=== PATIENT | male | born 1985 | race Caucasian/White ===

== ENCOUNTER 2020-11-20 13:05 | Emergency (ER) | payer OTHER ==
[~2020-11-20] VITALS: Ht 185.4 cm; Wt 122.5 kg
--- NOTE | 2020-11-20 13:24 | NUR ---
The patient is bibself got c/o cough x 10 days, 99% on room air,recently tested negative for covid. The patient is alert and oriented x4. Denies pain. Patient in room air. Patient seen by Dr Bartlett. Patient provided with warm blanket for comfort. Will continue to monitor.
[2020-11-20 13:54] LABS: BASOPHILS # (AUTO) 0.1 /CMM (0.0-0.2); BASOPHILS % (AUTO) 0.7 % (0.0-2.0); EOSINOPHILS % (AUTO) 1.7 % (0.0-6.0); HEMATOCRIT 45 % (39-51); HEMOGLOBIN 15.3 g/dL (13.5-17.5); LYMPHOCYTES % (AUTO) 30.4 % (20.0-44.0); MEAN CORPUSCULAR HGB CONC 34 g/dl (31.0-36.0); MEAN CORPUSCULAR VOLUME 89 fL (80-96); MONOCYTES # (AUTO) 0.8 /CMM (0.1-1.30); MONOCYTES % (AUTO) 7.7 % (2.0-12.0); NEUTROPHILS # (AUTO) 5.9 /CMM (1.8-8.9); NEUTROPHILS % (AUTO) 59.5 % (43.0-81.0); PLATELET COUNT (AUTO) 176 /CMM (150-450); RED BLOOD CELL COUNT(AUTO) 5.01 MIL/uL (4.5-6.0)
[2020-11-20 14:01] LABS: CALCIUM, SERUM 8.8 mg/dL (8.5-10.1); CREATININE 1.1 mg/dL (0.6-1.3); POTASSIUM 4.1 mmol/L (3.5-5.1)
--- NOTE | 2020-11-20 14:01 | NUR ---
c[place] swab done and took it to the lab
--- NOTE | 2020-11-20 14:30 | NUR ---
the patient alert and oreinted x4. Denies pain/SOB. Respiration regular and unlabored. Patient discharged to home in stable condition. Written and verbal after care instructions given. Patient verbalizes understanding of instruction. Patient left ER in stable condition.
[2020-11-20 14:31] VITALS: BP 131/78
== END 2020-11-20 14:31 | disposition home or self-care (01) ==
LOC: ER 13:09
DX: R09.82 Postnasal drip (principal); R05 Cough; Z20.822 Contact with and (suspected) exposure to COVID-19
CPT/HCPCS: 36415; 71045; 80048; 85025; 99284; C9803; U0003

== ENCOUNTER 2022-07-01 11:31 | Emergency (ER) | payer MEDICAID, OTHER ==
[~2022-07-01] VITALS: Ht 185.4 cm; Wt 95.3 kg
--- NOTE | 2022-07-01 11:43 | NUR ---
AT BEDSIDE FOR EVAL
[2022-07-01] MEDS ORDERED: FAMOTIDINE/PF INJ 20 MG/2 ML VIAL IV ONE ×2 (11:50→12:00)
--- NOTE | 2022-07-01 11:50 | NUR ---
IV line established 20g RAC , blood drawn sent to lab
[2022-07-01] MEDS ORDERED: IV NS 0.9% 500 ML BAG IV ONE (12:00)
[2022-07-01 12:37] LABS: BASOPHILS % (AUTO) 0.2 % (0.0-2.0); EOSINOPHILS % (AUTO) 0.5 % (0.0-6.0); HEMATOCRIT 46 % (39-51); HEMOGLOBIN 15.8 g/dL (13.5-17.5); LYMPHOCYTES # (AUTO) 3.7 K/uL (0.8-4.8); LYMPHOCYTES % (AUTO) 26.8 % (20.0-44.0); MEAN CORPUSCULAR HGB CONC 34 g/dl (31.0-36.0); MEAN CORPUSCULAR VOLUME 87 fL (80-96); MONOCYTES # (AUTO) 1.1 K/uL (0.1-1.30); MONOCYTES % (AUTO) 8.3 % (2.0-12.0); NEUTROPHILS # (AUTO) 8.7 K/uL (1.8-8.9); NEUTROPHILS % (AUTO) 64.2 % (43.0-81.0); PLATELET COUNT (AUTO) 208 K/uL (150-450); RED BLOOD CELL COUNT(AUTO) 5.33 MIL/uL (4.5-6.0); WHITE BLOOD COUNT (AUTO) 13.6 K/uL (4.3-11.0)
[2022-07-01 12:54] LABS: ALBUMIN 4.3 g/dL (3.4-5.0); BILIRUBIN,DIRECT 0.1 mg/dL (0.0-0.2); BILIRUBIN,TOTAL 0.6 mg/dL (0.2-1.0); CALCIUM, SERUM 8.6 mg/dL (8.5-10.1); CREATININE 1.2 mg/dL (0.6-1.3); POTASSIUM 3.8 mmol/L (3.5-5.1); TOTAL PROTEIN, SERUM 7.8 g/dL (6.4-8.2)
[2022-07-01] MEDS ORDERED: FAMO-131 PO (13:04)
[2022-07-01 13:13] VITALS: BP 125/80
--- NOTE | 2022-07-01 13:13 | NUR ---
IV removed. Catheter intact and site benign. Pressure and 4x4 applied to site. No bleeding noted.
--- NOTE | 2022-07-01 13:13 | NUR ---
Patient discharged to home in stable condition. Written and verbal after care instructions given. Patient verbalizes understanding of instruction.
== END 2022-07-01 13:14 | disposition home or self-care (01) ==
LOC: ER 11:31
DX: K29.20 Alcoholic gastritis without bleeding (principal); F10.10 Alcohol abuse, uncomplicated; Y90.9 Presence of alcohol in blood, level not specified
CPT/HCPCS: 99283; 85025; 80048; 83690; 80076; 36415; J3490; J7040

== ENCOUNTER 2023-11-25 09:40 | Emergency (ER) | payer MEDICAID ==
[~2023-11-25] VITALS: Ht 185.4 cm; Wt 99.8 kg
[~2023-11-25 09:40] MED LIST: FAMO-131 PO
[2023-11-25 10:12] LABS: BASOPHILS # (AUTO) 0.1 K/uL (0.0-0.2); BASOPHILS % (AUTO) 0.8 % (0.0-2.0); EOSINOPHILS # (AUTO) 0.3 K/uL (0.0-0.7); EOSINOPHILS % (AUTO) 1.9 % (0.0-6.0); HEMATOCRIT 46 % (39-51); HEMOGLOBIN 15.4 g/dL (13.5-17.5); LYMPHOCYTES % (AUTO) 14.5 % (20.0-44.0); MEAN CORPUSCULAR HEMOGLOBIN 30 PG (26.0-33.0); MEAN CORPUSCULAR HGB CONC 34 g/dl (31.0-36.0); MEAN CORPUSCULAR VOLUME 88 fL (80-96); MONOCYTES # (AUTO) 0.7 K/uL (0.1-1.30); MONOCYTES % (AUTO) 5.3 % (2.0-12.0); NEUTROPHILS # (AUTO) 10.5 K/uL (1.8-8.9); NEUTROPHILS % (AUTO) 77.5 % (43.0-81.0); PLATELET COUNT (AUTO) 162 K/uL (150-450); RED BLOOD CELL COUNT(AUTO) 5.16 MIL/uL (4.5-6.0); RED CELL DISTRIBUTION WIDTH 13.2 % (11.5-15.0); WHITE BLOOD COUNT (AUTO) 13.6 K/uL (4.3-11.0)
[2023-11-25] MEDS: IV NS 0.9% 1,000 ML BAG IV ONE (10:13)
[2023-11-25 10:21] LABS: APPEARANCE,URINE CLEAR (CLEAR); BILIRUBIN,URINE NEGATIVE (NEGATIVE); BLOOD, URINE TRACE-INTA Ery/uL (NEGATIVE); COLOR,URINE YELLOW (YELLOW); KETONES,URINE NEGATIVE (NEGATIVE); LEUKOCYTE ESTERASE ,URINE NEGATIVE (NEGATIVE); NITRITE, URINE NEGATIVE (NEGATIVE); PROTEIN,URINE NEGATIVE (NEGATIVE); UGLUCOSE NEGATIVE (NEGATIVE); UROBILINOGEN,URINE 0.2 EU/dL (0.2)
[2023-11-25 10:25] LABS: ADD URINE CULTURE NO; BACTERIA,URINE None seen /HPF (None Seen); SQUAMOUS EPITHELIAL CELL,UR Few /HPF (None Seen); WBC,URINE 0-2 /HPF (0-3)
[2023-11-25 10:31] LABS: CALCIUM, SERUM 8.7 mg/dL (8.5-10.1); CREATININE 1.2 mg/dL (0.6-1.3); POTASSIUM 4.2 mmol/L (3.5-5.1)
[2023-11-25 10:40] LABS: ALBUMIN 3.7 g/dL (3.4-5.0); BILIRUBIN,DIRECT 0.2 mg/dL (0.0-0.2); BILIRUBIN,TOTAL 0.9 mg/dL (0.2-1.0); TOTAL PROTEIN, SERUM 7.4 g/dL (6.4-8.2)
[2023-11-25] MEDS: PANTOPRAZOLE 40 MG VIAL IV ONE (11:25)
[2023-11-25] MEDS ORDERED: ONDANSETRON HCL/PF 4 MG/2 ML VIAL ONE (11:25)
[2023-11-25] MEDS ORDERED: LIDOCAINE VISCOUS 2% UD 15 ML UDC ONE (11:25)
[2023-11-25] MEDS ORDERED: MAG HYDROX/AL HYDROX/SIMETH 30 ML UDC ONE (11:25)
[2023-11-25] MEDS ORDERED: PANTOPRAZOLE 40 MG VIAL ONE (11:25)
[2023-11-25] MEDS ORDERED: PANT40TA2 PO (11:26)
[2023-11-25] MEDS ORDERED: ONDA4TAB5 PO (11:26)
[2023-11-25] MEDS: ONDANSETRON HCL/PF 4 MG/2 ML VIAL IVP ONE (11:27)
[2023-11-25] MEDS: LIDOCAINE VISCOUS 2% UD 15 ML UDC MM ONE (11:27)
[2023-11-25] MEDS: MAG HYDROX/AL HYDROX/SIMETH 30 ML UDC PO ONE (11:28)
[2023-11-25 12:15] VITALS: BP 129/77; TEMP 98.4; O2SAT 99
== END 2023-11-25 12:16 | disposition home or self-care (01) ==
LOC: ER 09:40
DX: K29.20 Alcoholic gastritis without bleeding (principal); R10.13 Epigastric pain; R11.0 Nausea
CPT/HCPCS: 99284; 96374; 71045; 96361; 96375; 85025; 80048; 83690; 80076; 81001; 36415; J2405; J7030; C9113; A6403

== ENCOUNTER 2025-03-24 18:01 | Emergency (ER) | payer MEDICAID ==
[~2025-03-24] VITALS: Ht 175.3 cm; Wt 93.9 kg
[~2025-03-24 18:01] MED LIST changes: +ONDA4TAB5 PO; +PANT40TA2 PO
[2025-03-24] MEDS ORDERED: ONDANSETRON HCL/PF 4 MG/2 ML VIAL ONE ×2 (18:12→20:27)
[2025-03-24] MEDS ORDERED: TDAP [DIPH/PERTUSSIS/TET] 0.5 ML VIAL IM ONE (18:12)
[2025-03-24 18:18] LABS: PLATELET COUNT (AUTO) 179 K/uL (150-450); RED BLOOD CELL COUNT(AUTO) 5.23 MIL/uL (4.5-6.0); RED CELL DISTRIBUTION WIDTH 13.2 % (11.5-15.0); WHITE BLOOD COUNT (AUTO) 13.7 K/uL (4.3-11.0)
[2025-03-24 18:36] LABS: CALCIUM, SERUM 9.0 mg/dL (8.5-10.1); CREATININE 1.3 mg/dL (0.6-1.3); SODIUM SERUM 140 mmol/L (136-145); UREA NITROGEN, BLOOD 19 mg/dL (7-18)
[2025-03-24 18:38] LABS: ALCOHOL, BLOOD < 3 mg/dL (0-10)
[2025-03-24] MEDS: TDAP [DIPH/PERTUSSIS/TET] 0.5 ML VIAL IM ONE (18:41)
[2025-03-24] MEDS: IV NS 0.9% 1,000 ML BAG IV ONE (18:41)
[2025-03-24] MEDS: ONDANSETRON HCL/PF 4 MG/2 ML VIAL IVP ONE ×2 (18:42→20:34)
[2025-03-24 19:08] LABS: INR 0.97 (0.91-1.10)
[2025-03-24] MEDS ORDERED: AMOX-430 PO (20:08)
[2025-03-24] MEDS ORDERED: NAPR-1164 PO (20:08)
[2025-03-24] MEDS ORDERED: MORPHINE SULFATE INJ 4 MG/ML DISP.SYRIN ONE (20:28)
[2025-03-24] MEDS ORDERED: HYDR-3980 PO (20:30)
[2025-03-24] MEDS ORDERED: NALO4SPR BNOSTRILS (20:30)
[2025-03-24] MEDS ORDERED: ONDA4TAB11 PO (20:30)
[2025-03-24] MEDS: MORPHINE SULFATE INJ 2 MG/ML DISP.SYRIN IV ONE (20:34)
[2025-03-24 20:48] VITALS: BP 137/89; TEMP 97.9; O2SAT 98
== END 2025-03-24 20:49 | disposition home or self-care (01) ==
LOC: ER 18:02
DX: S02.31XA Fracture of orbital floor, right side, initial encounter for closed fracture (principal); S00.01XA Abrasion of scalp, initial encounter; Z79.899 Other long term (current) drug therapy; Y08.89XA Assault by other specified means, initial encounter; Y93.89 Activity, other specified; Y92.89 Other specified places as the place of occurrence of the external cause; Y99.8 Other external cause status
CPT/HCPCS: 99285; 96374; 90471; 96361; 96375; 90715; 71045; 96376; 72125; 70450; 70486; 85025; 80048; 36415; 85730; 80320; J2270; J2405 ×2; J7030; A6403; G0480

== ENCOUNTER 2025-03-28 10:53 | Emergency (ER) | payer MEDICAID ==
[~2025-03-28] VITALS: Ht 182.9 cm; Wt 93.9 kg
[~2025-03-28 10:53] MED LIST changes: +AMOX-430 PO; +HYDR-3980 PO; +NALO4SPR BNOSTRILS; +NAPR-1164 PO; +ONDA4TAB11 PO
[2025-03-28 12:05] VITALS: BP 123/74; TEMP 98.3; O2SAT 99
== END 2025-03-28 12:05 | disposition home or self-care (01) ==
LOC: ER 11:00
DX: S02.31XA Fracture of orbital floor, right side, initial encounter for closed fracture (principal); Z79.899 Other long term (current) drug therapy; Y04.0XXA Assault by unarmed brawl or fight, initial encounter; Y93.89 Activity, other specified; Y92.89 Other specified places as the place of occurrence of the external cause; Y99.8 Other external cause status
CPT/HCPCS: 70450-TC